=== PATIENT | female | born 1940 | race African-American/Black ===

== ENCOUNTER 2016-06-04 17:38 | Inpatient (IN) | payer MEDICARE, BC ==
[~2016-06-04] VITALS: Ht 157.5 cm; Wt 70.8 kg
[2016-06-04 17:00] VITALS: BP 120/80
[2016-06-04] MEDS ORDERED: IPRATROPIUM/ALBUTEROL 0.5-3(2.5)MG/3ML NEB HHN PRN (18:45)
[2016-06-04] MEDS ORDERED: TRAMADOL 50MG TABLET PO PRN (18:45)
[2016-06-04] MEDS ORDERED: MORPHINE SULFATE 2 MG/ML CPJ (NOT FOR IM USE) IV PRN (18:45)
[2016-06-04] MEDS ORDERED: DIATR MEGLU/DIATRIZOATE SOLN 30ML PO SCH (19:00)
[2016-06-04 19:49] LABS: CHLORIDE 105 mEq/L (98-107); INDEX HEMOLYSI 1 (1-3); INDEX ICTERIC 1 (1-4); INDEX LIPEMIC 1 (1-3)
[2016-06-04 19:52] LABS: INR 1.3
[2016-06-04 19:58] LABS: ALANINE AMINOTRANSFERASE 13 IU/L (13-61); ALBUMIN 2.5 g/dL (3.4-5.0); ANION GAP 18; CALCIUM 8.4 mg/dL (8.5-10.1); CARBON DIOXIDE 22 mEq/L (21-32); PHOSPHORUS 3.7 mg/dL (2.5-4.9); UREA NITROGEN BLOOD 7 mg/dL (7-21); eGFR > 60 mL/min (>60)
[2016-06-04 19:59] LABS: HEMATOCRIT. 33.2 % (36.0-48.0); HEMOGLOBIN. 10.7 g/dL (12.0-16.0); MEAN CORPUSCULAR HEMOGLOBIN 28.4 pg (28.0-32.0); MEAN CORPUSCULAR HGB CONC 32.3 g/dL (31.0-37.0); MEAN CORPUSCULAR VOLUME 88.1 fL (81.0-99.0); MEAN PLATELET VOLUME 7.9 fl (7.4-10.4); PLATELET 234 x1000/uL (130-400); RED BLOOD CELL COUNT 3.77 mill/uL (4.2-5.4); RED CELL DISTRIBUTION WIDTH 16.2 % (11.6-14.6); WHITE BLOOD COUNT 13.1 x1000/uL (4.5-11.0)
[2016-06-04 20:00] VITALS: BP 125/70
[2016-06-04 20:13] LABS: DIFFERENTIAL COMMENT 1
[2016-06-04 20:27] LABS: PLATELET ESTIMATE NORMAL
[2016-06-04 20:28] LABS: ANISOCYTOSIS 2+; HYPOCHROMASIA 1+
[2016-06-05] VITALS: BP 118/71
[2016-06-05] MEDS: ACETAMINOPHEN 325MG TABLET PO PRN ×2 (02:45→09:41)
[2016-06-05 04:00] VITALS: BP 118/72
[2016-06-05 08:00] VITALS: BP 109/70
[2016-06-05] MEDS: ENOXAPARIN 40MG/0.4ML SYR SUBCUT SCH (09:00)
[2016-06-05] MEDS ORDERED: IOHEXOL-300 100 ML BOTTLE ONE (11:50)
[2016-06-05] MEDS ORDERED: SODIUM CHLORIDE 0.9% 10ML VIAL ONE (11:50)
[2016-06-05 12:00] VITALS: BP 111/78
[2016-06-05] MEDS ORDERED: GUAIFENESIN/CODEINE 100-10MG/5ML UDC PO PRN (12:00)
[2016-06-05 12:57] LABS: HEMATOCRIT. 35.5 % (36.0-48.0); HEMOGLOBIN. 11.5 g/dL (12.0-16.0); MEAN CORPUSCULAR HEMOGLOBIN 28.6 pg (28.0-32.0); MEAN CORPUSCULAR HGB CONC 32.4 g/dL (31.0-37.0); MEAN CORPUSCULAR VOLUME 88.2 fL (81.0-99.0); MEAN PLATELET VOLUME 7.8 fl (7.4-10.4); PLATELET 252 x1000/uL (130-400); RED BLOOD CELL COUNT 4.03 mill/uL (4.2-5.4); RED CELL DISTRIBUTION WIDTH 16.5 % (11.6-14.6); WHITE BLOOD COUNT 14.4 x1000/uL (4.5-11.0)
[2016-06-05 13:01] LABS: DIFFERENTIAL COMMENT 1
[2016-06-05 13:09] LABS: ANION GAP 16; CALCIUM 8.8 mg/dL (8.5-10.1); CARBON DIOXIDE 21 mEq/L (21-32); CHLORIDE 104 mEq/L (98-107); INDEX HEMOLYSI 1 (1-3); INDEX ICTERIC 1 (1-4); INDEX LIPEMIC 1 (1-3); UREA NITROGEN BLOOD 7 mg/dL (7-21); eGFR > 60 mL/min (>60)
[2016-06-05 14:05] LABS: NUCLEATED RED BLOOD CELLS 1 /100 WBC
[2016-06-05 14:06] LABS: PLATELET ESTIMATE NORMAL
[2016-06-05 14:07] LABS: ANISOCYTOSIS 1+; GIANT PLATELETS 1+
[2016-06-05] MEDS: BENZONATATE 200MG CAPSULE PO SCH ×2 (14:32→22:29)
[2016-06-05] MEDS ORDERED: REGADENOSON 0.4 MG/5 ML IV SCH (15:30)
[2016-06-05 16:00] VITALS: BP 113/65
[2016-06-05] MEDS: IPRATROPIUM/ALBUTEROL 0.5-3(2.5)MG/3ML NEB HHN SCH ×3 (16:00→23:50)
[2016-06-05] MEDS ORDERED: MAGNESIUM CITRATE 300ML SOLUTION PO NR (17:30)
[2016-06-05] MEDS ORDERED: NEOMYCIN 500MG TABLET PO NR ×3 (18:00→22:00)
[2016-06-05] MEDS ORDERED: ERYTHROMYCIN 250MG TABLET PO NR ×3 (18:00→22:00)
[2016-06-05 20:00] VITALS: BP 109/71
[2016-06-05] MEDS: ONDANSETRON HCL 4MG/2ML VIAL IV PRN (20:36)
[2016-06-06] VITALS (20 sets, daily range): BP systolic 94–130; BP diastolic 54–82
[2016-06-06 01:38] LABS: CLARITY URINE CLOUDY (CLEAR); COLOR URINE DARK YELLOW (YELLOW); GLUCOSE URINE NEGATIVE (NEGATIVE); KETONES URINE TRACE (NEGATIVE); LEUKOCYTE ESTERASE URINE 1+ (NEGATIVE); NITRITE URINE NEGATIVE (NEGATIVE); OCCULT BLOOD URINE 1+ (NEGATIVE); PH URINE 6.5 (4.5-8.0); PROTEIN URINE 1+ (NEGATIVE); SPECIFIC GRAVITY URINE 1.044 (1.005-1.030)
[2016-06-06 03:17] LABS: AMORPHOUS SEDIMENT URINE 1+ /lpf; BACTERIA URINE 4+; SQUAMOUS EPITHELIAL CELL URINE FEW /lpf (RARE/1+)
[2016-06-06] MEDS: IPRATROPIUM/ALBUTEROL 0.5-3(2.5)MG/3ML NEB HHN SCH ×5 (04:12→20:07)
[2016-06-06] MEDS: BENZONATATE 200MG CAPSULE PO SCH ×3 (05:44→21:39)
[2016-06-06] MEDS: ONDANSETRON HCL 4MG/2ML VIAL IV PRN (08:03)
[2016-06-06] MEDS: ENOXAPARIN 40MG/0.4ML SYR SUBCUT SCH (08:06)
[2016-06-06] MEDS ORDERED: REGADENOSON 0.4 MG/5 ML IV ONE (09:34)
[2016-06-06] MEDS ORDERED: PROPOFOL 200MG/20ML VIAL IV ONE (10:21)
[2016-06-06] MEDS ORDERED: MIDAZOLAM HCL 2 MG/2 ML VIAL ONE (10:21)
[2016-06-06] MEDS ORDERED: LIDOCAINE HCL 1% 20ML VIAL (Pyxis) INJ ONE (10:21)
[2016-06-06] MEDS ORDERED: FENTANYL CITRATE/PF 50MCG/ML 2ML VIAL ONE (10:22)
[2016-06-06] MEDS ORDERED: BUPIVACAINE HCL 0.5% (5MG/ML) 50ML ONE (11:16)
[2016-06-06] MEDS ORDERED: SKIN ADHESIVE 0.7 GM EA TOP ONE (11:16)
[2016-06-06] MEDS ORDERED: ALBUTEROL 90MCG/PUFF 17GM INHALER INH ONE (11:20)
[2016-06-06] MEDS ORDERED: LEVOFLOXACIN 500MG PREMIX 100 ML IV ONE (11:25)
[2016-06-06] MEDS ORDERED: METRONIDAZOLE 500 MG PREMIX 100 ML IV ONE (11:26)
[2016-06-06] MEDS ORDERED: BUPIVACAINE HCL 0.5% 290 ML in ON-Q PM015 DRUG DELIV DEVICE 1 EA IR SCH (12:00)
[2016-06-06] MEDS ORDERED: ONDANSETRON HCL 4MG/2ML VIAL IV PRN ×2 (12:15→13:00)
[2016-06-06] MEDS ORDERED: HYDROMORPHONE HCL/PF 2MG/ML CPJ IV PRN (12:15)
[2016-06-06] MEDS ORDERED: GLYCOPYRROLATE 0.2 MG/ML 2ML VIAL ONE (12:33)
[2016-06-06] MEDS ORDERED: NEOSTIGMINE METHYLSULFATE 1MG/ML 10 ML VIAL ONE (12:33)
[2016-06-06] MEDS ORDERED: ONDANSETRON HCL 4MG/2ML VIAL ONE (12:37)
[2016-06-06] MEDS ORDERED: BUPIVACAINE HCL 0.5% 290 ML in ON-Q PM015 DRUG DELIV DEVICE 1 EA IR NR (13:00)
[2016-06-06] MEDS ORDERED: ACETAMINOPHEN 650MG SUPP PR PRN (13:00)
[2016-06-06] MEDS ORDERED: ONDANSETRON INJ IV PRN (13:45)
[2016-06-06] MEDS ORDERED: HYDROMORPHONE PCA 10MG/50ML IV PRN (13:45)
[2016-06-06] MEDS ORDERED: DIPHENHYDRAMINE INJ IV PRN (13:45)
[2016-06-06] MEDS ORDERED: NALOXONE INJ IV PRN (13:45)
[2016-06-06] MEDS ORDERED: DEXT 5%/0.45% NACL KCL 20MEQ/L 1,000 ML IV SCH ×2 (14:00→23:04)
[2016-06-06] MEDS ORDERED: NOREPINEPHRINE BITARTRATE 1MG/ML 4ML IV ONE (14:54)
[2016-06-06 15:20] LABS: BG CARBOXYHEMOGLOBIN 0.1 % (0.5-1.5); BG DEOXYHEMOGLOBIN 1.2 % (0.0-5.0); BG FRACTION INSPIRED OXYGEN 40; BG HCO3 ACT 13.8 mmol/L (22.0-26.0); BG METHEMOGLOBIN 0.5 % (0.0-1.5); BG OXYGEN SATURATION 98.8 % (92.0-98.5); BG OXYHEMOGLOBIN 98.2 % (94.0-97.0); BG PCO2 31.5 mmHg (35.0-45.0); BG PH 7.261 (7.350-7.450); BG PO2 156.1 mmHg (75.0-100.0); BG SAMPLE SITE RIGHT BRACHIAL; BG TIDAL VOLUME(mL) 450 mL; BG TOTAL HEMOGLOBIN 12.2 g/dL (12.0-18.0); BG VENT MODE VENT - A/C; BG VENT RATE 14 set
[2016-06-06] MEDS: MORPHINE SULFATE 2 MG/ML CPJ (NOT FOR IM USE) IV PRN ×2 (17:48→22:43)
[2016-06-06] MEDS ORDERED: SODIUM BICARBONATE 8.4% 1 MEQ/ML 50ML SYR IV NR (19:45)
[2016-06-06] MEDS: MORPHINE SULFATE 4 MG/ML CPJ (NOT FOR IM USE) IV PRN (20:19)
[2016-06-06] MEDS: FAMOTIDINE 20MG/2ML VIAL IV SCH (21:18)
[2016-06-06 22:12] LABS: BG BASE EXCESS -6.2 mmol/L (-2.0-2.0); BG CARBOXYHEMOGLOBIN 0.3 % (0.5-1.5); BG DEOXYHEMOGLOBIN 1.9 % (0.0-5.0); BG FRACTION INSPIRED OXYGEN 30; BG HCO3 ACT 16.8 mmol/L (22.0-26.0); BG METHEMOGLOBIN 0.5 % (0.0-1.5); BG OXYGEN SATURATION 98.1 % (92.0-98.5); BG OXYHEMOGLOBIN 97.3 % (94.0-97.0); BG PH 7.427 (7.350-7.450); BG PO2 114.7 mmHg (75.0-100.0); BG SAMPLE SITE RIGHT BRACHIAL; BG TIDAL VOLUME(mL) 450 mL; BG TOTAL HEMOGLOBIN 11.4 g/dL (12.0-18.0); BG VENT MODE VENT - A/C; BG VENT RATE 12 set
[2016-06-06] MEDS ORDERED: METRONIDAZOLE 500 MG PREMIX 100 ML IV STA (23:00)
[2016-06-06] MEDS ORDERED: VANCOMYCIN 1 G PREMIX 200 ML IV SCH (23:00)
[2016-06-07] VITALS (47 sets, daily range): BP systolic 94–136; BP diastolic 53–103
[2016-06-07] MEDS ORDERED: VANCOMYCIN 1250MG in DEXTROSE 5% WATER 250ML IV NR ×2
[2016-06-07] MEDS: WATER IV SCH ×2 (00:09→13:56)
[2016-06-07] MEDS: DEXTROSE 5% IV SCH ×2 (00:09→13:56)
[2016-06-07] MEDS: SODIUM BICARBONATE IV SCH ×2 (00:09→13:56)
[2016-06-07] MEDS: POTASSIUM CHLORIDE IV SCH ×2 (00:09→13:56)
[2016-06-07] MEDS: IPRATROPIUM/ALBUTEROL 0.5-3(2.5)MG/3ML NEB HHN SCH ×6 (00:10→20:09)
[2016-06-07] MEDS: METRONIDAZOLE 500 MG PREMIX 100 ML IV SCH ×3 (02:41→17:16)
[2016-06-07] MEDS: MORPHINE SULFATE 4 MG/ML CPJ (NOT FOR IM USE) IV PRN ×4 (02:42→19:56)
[2016-06-07 05:20] LABS: HEMATOCRIT. 31.4 % (36.0-48.0); HEMOGLOBIN. 10.4 g/dL (12.0-16.0); MEAN CORPUSCULAR HEMOGLOBIN 28.6 pg (28.0-32.0); MEAN CORPUSCULAR VOLUME 86.6 fL (81.0-99.0); MEAN PLATELET VOLUME 8.1 fl (7.4-10.4); PLATELET 260 x1000/uL (130-400); RED BLOOD CELL COUNT 3.63 mill/uL (4.2-5.4); RED CELL DISTRIBUTION WIDTH 16.2 % (11.6-14.6); WHITE BLOOD COUNT 16.2 x1000/uL (4.5-11.0)
[2016-06-07] MEDS: BENZONATATE 200MG CAPSULE PO SCH ×3 (05:20→21:06)
[2016-06-07 05:25] LABS: DIFFERENTIAL COMMENT 1
[2016-06-07] MEDS ORDERED: LEVOFLOXACIN 500MG PREMIX 100 ML IV SCH (09:00)
[2016-06-07 09:07] LABS: PLATELET ESTIMATE NORMAL
[2016-06-07 11:53] LABS: BG BASE EXCESS -1.4 mmol/L (-2.0-2.0); BG CARBOXYHEMOGLOBIN 0.3 % (0.5-1.5); BG DEOXYHEMOGLOBIN 1.1 % (0.0-5.0); BG FRACTION INSPIRED OXYGEN 30; BG HCO3 ACT 18.3 mmol/L (22.0-26.0); BG METHEMOGLOBIN 0.3 % (0.0-1.5); BG OXYGEN SATURATION 98.9 % (92.0-98.5); BG OXYHEMOGLOBIN 98.3 % (94.0-97.0); BG PCO2 18.7 mmHg (35.0-45.0); BG PH 7.608 (7.350-7.450); BG PO2 145.1 mmHg (75.0-100.0); BG SAMPLE SITE RIGHT RADIAL; BG TIDAL VOLUME(mL) 450 mL; BG VENT MODE VENT - A/C; BG VENT RATE 12 set
[2016-06-07] MEDS ORDERED: SODIUM BICARBONATE 8.4% 1 MEQ/ML 50ML SYR IV NR (12:00)
[2016-06-07] MEDS: VANCOMYCIN 1 G PREMIX 200 ML IV SCH (18:10)
[2016-06-07] MEDS: FAMOTIDINE 20MG/2ML VIAL IV SCH (20:53)
[2016-06-08] VITALS (45 sets, daily range): BP systolic 93–150; BP diastolic 47–97
[2016-06-08] MEDS: IPRATROPIUM/ALBUTEROL 0.5-3(2.5)MG/3ML NEB HHN SCH ×6 (00:15→20:26)
[2016-06-08] MEDS: METRONIDAZOLE 500 MG PREMIX 100 ML IV SCH ×3 (01:39→17:06)
[2016-06-08] MEDS: POTASSIUM CHLORIDE IV SCH ×2 (03:54→18:39)
[2016-06-08] MEDS: WATER IV SCH ×2 (03:54→18:39)
[2016-06-08] MEDS: DEXTROSE 5% IV SCH ×2 (03:54→18:39)
[2016-06-08] MEDS: SODIUM BICARBONATE IV SCH ×2 (03:54→18:39)
[2016-06-08] MEDS: MORPHINE SULFATE 4 MG/ML CPJ (NOT FOR IM USE) IV PRN ×4 (03:55→21:32)
[2016-06-08 05:39] LABS: HEMATOCRIT. 32.8 % (36.0-48.0); HEMOGLOBIN. 10.9 g/dL (12.0-16.0); MEAN CORPUSCULAR HEMOGLOBIN 28.8 pg (28.0-32.0); MEAN CORPUSCULAR HGB CONC 33.2 g/dL (31.0-37.0); MEAN CORPUSCULAR VOLUME 86.8 fL (81.0-99.0); MEAN PLATELET VOLUME 8.3 fl (7.4-10.4); PLATELET 233 x1000/uL (130-400); RED BLOOD CELL COUNT 3.78 mill/uL (4.2-5.4); RED CELL DISTRIBUTION WIDTH 16.5 % (11.6-14.6); WHITE BLOOD COUNT 15.9 x1000/uL (4.5-11.0)
[2016-06-08 05:43] LABS: DIFFERENTIAL COMMENT 1
[2016-06-08] MEDS: BENZONATATE 200MG CAPSULE PO SCH ×4 (05:47→21:44)
[2016-06-08 07:01] LABS: BG BASE EXCESS 2.2 mmol/L (-2.0-2.0); BG CARBOXYHEMOGLOBIN 0.3 % (0.5-1.5); BG DEOXYHEMOGLOBIN 1.9 % (0.0-5.0); BG FRACTION INSPIRED OXYGEN 24; BG HCO3 ACT 23.1 mmol/L (22.0-26.0); BG METHEMOGLOBIN 0.9 % (0.0-1.5); BG OXYGEN SATURATION 98.1 % (92.0-98.5); BG OXYHEMOGLOBIN 96.9 % (94.0-97.0); BG PCO2 24.7 mmHg (35.0-45.0); BG PH 7.588 (7.350-7.450); BG PO2 109.6 mmHg (75.0-100.0); BG SAMPLE SITE RIGHT BRACHIAL; BG TIDAL VOLUME(mL) 450 mL; BG TOTAL HEMOGLOBIN 10.6 g/dL (12.0-18.0); BG VENT MODE VENT - A/C; BG VENT RATE 12 set
[2016-06-08 07:30] LABS: CHLORIDE 101 mEq/L (98-107); INDEX HEMOLYSI 1 (1-3); INDEX ICTERIC 1 (1-4); INDEX LIPEMIC 1 (1-3)
[2016-06-08 07:39] LABS: ALANINE AMINOTRANSFERASE 15 IU/L (13-61); ALBUMIN 1.8 g/dL (3.4-5.0); ANION GAP 18; BILIRUBIN DIRECT 0.1 mg/dL (0.0-0.2); CALCIUM 7.7 mg/dL (8.5-10.1); CARBON DIOXIDE 20 mEq/L (21-32); UREA NITROGEN BLOOD 9 mg/dL (7-21); eGFR > 60 mL/min (>60)
[2016-06-08 09:07] LABS: PLATELET ESTIMATE NORMAL
[2016-06-08 09:08] LABS: ANISOCYTOSIS 1+; GIANT PLATELETS FEW
[2016-06-08 10:43] LABS: MAGNESIUM 2.5 mg/dL (1.8-2.4); PHOSPHORUS 1.7 mg/dL (2.5-4.9)
[2016-06-08] MEDS ORDERED: POTASSIUM CHLORIDE INJ 40 MEQ in DEXT 5% WATER 250 ML IV NR (11:30)
[2016-06-08] MEDS: VANCOMYCIN 1 G PREMIX 200 ML IV SCH (11:47)
[2016-06-08] MEDS: MORPHINE SULFATE 2 MG/ML CPJ (NOT FOR IM USE) IV PRN (11:47)
[2016-06-08 12:15] LABS: HEPATITIS B SURFACE ANTIGEN NEGATIVE
[2016-06-08 12:39] LABS: HEPATITIS C VIR.AB 0.13 INDEXVAL (0.00-0.80)
[2016-06-08 12:40] LABS: HEPATITIS B CORE AB IGM NEGATIVE
[2016-06-08 12:41] LABS: HEPATITIS A AB IGM NEGATIVE (NEGATIVE)
[2016-06-08] MEDS ORDERED: POTASSIUM PHOS,M-BASIC-D-BASIC 20 MMOL in DEXT 5% WATER 243.3333 ML IV NR (13:00)
[2016-06-08] MEDS: FAMOTIDINE 20MG/2ML VIAL IV SCH (21:31)
[2016-06-09] VITALS (42 sets, daily range): BP systolic 84–164; BP diastolic 50–112
[2016-06-09] MEDS: IPRATROPIUM/ALBUTEROL 0.5-3(2.5)MG/3ML NEB HHN SCH ×6 (00:23→20:15)
[2016-06-09] MEDS: MORPHINE SULFATE 4 MG/ML CPJ (NOT FOR IM USE) IV PRN ×2 (00:57→04:51)
[2016-06-09] MEDS: METRONIDAZOLE 500 MG PREMIX 100 ML IV SCH ×2 (01:22→09:17)
[2016-06-09 05:12] LABS: HEMATOCRIT. 28.9 % (36.0-48.0); HEMOGLOBIN. 9.5 g/dL (12.0-16.0); MEAN CORPUSCULAR HEMOGLOBIN 28.5 pg (28.0-32.0); MEAN CORPUSCULAR VOLUME 86.5 fL (81.0-99.0); PLATELET 205 x1000/uL (130-400); RED BLOOD CELL COUNT 3.34 mill/uL (4.2-5.4); RED CELL DISTRIBUTION WIDTH 16.7 % (11.6-14.6); WHITE BLOOD COUNT 15.8 x1000/uL (4.5-11.0)
[2016-06-09 05:15] LABS: DIFFERENTIAL COMMENT 1
[2016-06-09] MEDS: VANCOMYCIN 1 G PREMIX 200 ML IV SCH (05:41)
[2016-06-09] MEDS: BENZONATATE 200MG CAPSULE PO SCH ×3 (05:41→21:40)
[2016-06-09 06:26] LABS: ANION GAP 17; CARBON DIOXIDE 26 mEq/L (21-32); CHLORIDE 99 mEq/L (98-107); GAMMA GLUTAMYL TRANSPEPTIDASE 33 IU/L (7-32); INDEX HEMOLYSI 1 (1-3); INDEX ICTERIC 1 (1-4); INDEX LIPEMIC 1 (1-3); MAGNESIUM 2.3 mg/dL (1.8-2.4); UREA NITROGEN BLOOD 8 mg/dL (7-21); VANCOMYCIN TROUGH 3.7 ug/mL (5.0-10.0); eGFR > 60 mL/min (>60)
[2016-06-09 06:27] LABS: PHOSPHORUS 2.6 mg/dL (2.5-4.9)
[2016-06-09 07:10] LABS: BG BASE EXCESS 1.8 mmol/L (-2.0-2.0); BG CARBOXYHEMOGLOBIN 0.3 % (0.5-1.5); BG DEOXYHEMOGLOBIN 3.3 % (0.0-5.0); BG FRACTION INSPIRED OXYGEN 24; BG HCO3 ACT 24.9 mmol/L (22.0-26.0); BG METHEMOGLOBIN 0.4 % (0.0-1.5); BG OXYGEN SATURATION 96.7 % (92.0-98.5); BG PCO2 33.8 mmHg (35.0-45.0); BG PH 7.486 (7.350-7.450); BG PO2 86.5 mmHg (75.0-100.0); BG SAMPLE SITE RIGHT BRACHIAL; BG TIDAL VOLUME(mL) 450 mL; BG TOTAL HEMOGLOBIN 10.8 g/dL (12.0-18.0); BG VENT MODE VENT - A/C; BG VENT RATE 12 set
[2016-06-09] MEDS: POTASSIUM CHLORIDE IV SCH (07:34)
[2016-06-09] MEDS: SODIUM BICARBONATE IV SCH (07:34)
[2016-06-09] MEDS: WATER IV SCH (07:34)
[2016-06-09] MEDS: DEXTROSE 5% IV SCH (07:34)
[2016-06-09 08:31] LABS: ANISOCYTOSIS 1+
[2016-06-09 08:33] LABS: PLATELET ESTIMATE NORMAL
[2016-06-09] MEDS ORDERED: FUROSEMIDE 40MG/4ML VIAL IVP NR (08:41)
[2016-06-09] MEDS: METHYLPREDNISOLONE SOD SUCC 40 MG/ML VIAL IV SCH ×2 (08:54→18:25)
[2016-06-09] MEDS: MORPHINE SULFATE 2 MG/ML CPJ (NOT FOR IM USE) IV PRN (11:21)
[2016-06-09 13:48] LABS: BG BASE EXCESS 2.8 mmol/L (-2.0-2.0); BG CARBOXYHEMOGLOBIN 0.3 % (0.5-1.5); BG DEOXYHEMOGLOBIN 1.8 % (0.0-5.0); BG FRACTION INSPIRED OXYGEN 30; BG HCO3 ACT 26.1 mmol/L (22.0-26.0); BG METHEMOGLOBIN 0.4 % (0.0-1.5); BG OXYGEN SATURATION 98.2 % (92.0-98.5); BG OXYHEMOGLOBIN 97.5 % (94.0-97.0); BG PCO2 35.5 mmHg (35.0-45.0); BG PH 7.484 (7.350-7.450); BG PO2 113.8 mmHg (75.0-100.0); BG PRESSURE SUPPORT 10; BG SAMPLE SITE RIGHT BRACHIAL; BG TIDAL VOLUME(mL) 450 mL; BG TOTAL HEMOGLOBIN 11.7 g/dL (12.0-18.0); BG VENT MODE VENT - SIMV; BG VENT RATE 8 set
[2016-06-09] MEDS: DEXT 5%/0.45% NACL KCL 20MEQ/L 1,000 ML IV SCH (14:06)
[2016-06-09 17:08] LABS: MAGNESIUM 2.2 mg/dL (1.8-2.4); PHOSPHORUS 3.9 mg/dL (2.5-4.9)
[2016-06-09] MEDS ORDERED: IPRATROPIUM/ALBUTEROL 0.5-3(2.5)MG/3ML NEB HHN PRN (17:15)
[2016-06-09] MEDS: LEVOFLOXACIN 500MG PREMIX 100 ML IV SCH (19:42)
[2016-06-09] MEDS: FAMOTIDINE 20MG/2ML VIAL IV SCH (20:47)
[2016-06-09 22:43] LABS: CLARITY URINE CLEAR (CLEAR); COLOR URINE YELLOW (YELLOW); GLUCOSE URINE NEGATIVE (NEGATIVE); KETONES URINE NEGATIVE (NEGATIVE); LEUKOCYTE ESTERASE URINE NEGATIVE (NEGATIVE); NITRITE URINE NEGATIVE (NEGATIVE); OCCULT BLOOD URINE NEGATIVE (NEGATIVE); PH URINE 6.5 (4.5-8.0); PROTEIN URINE NEGATIVE (NEGATIVE); SPECIFIC GRAVITY URINE 1.009 (1.005-1.030); UROBILINOGEN URINE 0.2 E.U./dL (0.2-1.0)
[2016-06-10] VITALS (36 sets, daily range): BP systolic 96–143; BP diastolic 28–97
[2016-06-10] MEDS: IPRATROPIUM/ALBUTEROL 0.5-3(2.5)MG/3ML NEB HHN SCH ×6 (00:13→20:24)
[2016-06-10] MEDS: METHYLPREDNISOLONE SOD SUCC 40 MG/ML VIAL IV SCH ×3 (00:40→17:34)
[2016-06-10] MEDS: MORPHINE SULFATE 2 MG/ML CPJ (NOT FOR IM USE) IV PRN (00:41)
[2016-06-10 05:33] LABS: HEMATOCRIT. 32.3 % (36.0-48.0); HEMOGLOBIN. 10.6 g/dL (12.0-16.0); MEAN CORPUSCULAR HEMOGLOBIN 28.3 pg (28.0-32.0); MEAN CORPUSCULAR HGB CONC 32.8 g/dL (31.0-37.0); MEAN CORPUSCULAR VOLUME 86.4 fL (81.0-99.0); MEAN PLATELET VOLUME 8.3 fl (7.4-10.4); PLATELET 247 x1000/uL (130-400); RED BLOOD CELL COUNT 3.74 mill/uL (4.2-5.4); RED CELL DISTRIBUTION WIDTH 16.4 % (11.6-14.6); WHITE BLOOD COUNT 18.6 x1000/uL (4.5-11.0)
[2016-06-10] MEDS: BENZONATATE 200MG CAPSULE PO SCH ×3 (05:33→22:12)
[2016-06-10 05:35] LABS: DIFFERENTIAL COMMENT 1
[2016-06-10 06:03] LABS: ANION GAP 17; CALCIUM 8.2 mg/dL (8.5-10.1); CARBON DIOXIDE 27 mEq/L (21-32); CHLORIDE 97 mEq/L (98-107); INDEX HEMOLYSI 1 (1-3); INDEX ICTERIC 1 (1-4); INDEX LIPEMIC 1 (1-3); MAGNESIUM 2.4 mg/dL (1.8-2.4); PHOSPHORUS 3.5 mg/dL (2.5-4.9); UREA NITROGEN BLOOD 15 mg/dL (7-21); eGFR > 60 mL/min (>60)
[2016-06-10] MEDS: DEXT 5%/0.45% NACL KCL 20MEQ/L 1,000 ML IV SCH (06:44)
[2016-06-10] MEDS: MORPHINE SULFATE 4 MG/ML CPJ (NOT FOR IM USE) IV PRN ×2 (08:14→14:31)
[2016-06-10 08:27] LABS: PLATELET ESTIMATE NORMAL
[2016-06-10] MEDS: LEVOFLOXACIN 500MG PREMIX 100 ML IV SCH (11:03)
[2016-06-10] MEDS: FAMOTIDINE 20MG/2ML VIAL IV SCH (20:17)
[2016-06-11] VITALS (21 sets, daily range): BP systolic 59–151; BP diastolic 28–88
[2016-06-11] MEDS: METHYLPREDNISOLONE SOD SUCC 40 MG/ML VIAL IV SCH ×3 (00:24→18:19)
[2016-06-11] MEDS: MORPHINE SULFATE 2 MG/ML CPJ (NOT FOR IM USE) IV PRN ×2 (02:16→10:41)
[2016-06-11] MEDS: DEXT 5%/0.45% NACL KCL 20MEQ/L 1,000 ML IV SCH ×2 (03:54→20:48)
[2016-06-11] MEDS: BENZONATATE 200MG CAPSULE PO SCH ×3 (05:06→21:03)
[2016-06-11] MEDS: IPRATROPIUM/ALBUTEROL 0.5-3(2.5)MG/3ML NEB HHN SCH ×5 (06:36→20:16)
[2016-06-11] MEDS: LEVOFLOXACIN 500MG PREMIX 100 ML IV SCH (10:40)
[2016-06-11] MEDS: ACETAMINOPHEN 325MG TABLET PO PRN (18:23)
[2016-06-11] MEDS: FAMOTIDINE 20MG/2ML VIAL IV SCH (20:33)
[2016-06-12] VITALS (12 sets, daily range): BP systolic 116–137; BP diastolic 78–92
[2016-06-12] MEDS: METHYLPREDNISOLONE SOD SUCC 40 MG/ML VIAL IV SCH ×2 (00:33→08:13)
[2016-06-12] MEDS: IPRATROPIUM/ALBUTEROL 0.5-3(2.5)MG/3ML NEB HHN SCH ×6 (00:33→21:00)
[2016-06-12] MEDS: ACETAMINOPHEN 325MG TABLET PO PRN ×2 (00:41→08:49)
[2016-06-12] MEDS: BENZONATATE 200MG CAPSULE PO SCH ×3 (05:33→21:13)
[2016-06-12] MEDS: LEVOFLOXACIN 500MG PREMIX 100 ML IV SCH (10:17)
[2016-06-12] MEDS: FAMOTIDINE 20MG/2ML VIAL IV SCH (21:13)
[2016-06-12] MEDS: DEXT 5%/0.45% NACL KCL 20MEQ/L 1,000 ML IV SCH (21:13)
[2016-06-13] VITALS (11 sets, daily range): BP systolic 96–120; BP diastolic 31–75
[2016-06-13] MEDS: IPRATROPIUM/ALBUTEROL 0.5-3(2.5)MG/3ML NEB HHN SCH ×5 (00:36→16:05)
[2016-06-13] MEDS: ACETAMINOPHEN 325MG TABLET PO PRN (03:32)
[2016-06-13] MEDS: BENZONATATE 200MG CAPSULE PO SCH ×2 (05:36→13:13)
[2016-06-13 06:58] LABS: HEMATOCRIT. 32.6 % (36.0-48.0); HEMOGLOBIN. 10.6 g/dL (12.0-16.0); MEAN CORPUSCULAR HEMOGLOBIN 27.9 pg (28.0-32.0); MEAN CORPUSCULAR HGB CONC 32.6 g/dL (31.0-37.0); MEAN CORPUSCULAR VOLUME 85.8 fL (81.0-99.0); MEAN PLATELET VOLUME 7.8 fl (7.4-10.4); PLATELET 93 x1000/uL (130-400); RED CELL DISTRIBUTION WIDTH 16.9 % (11.6-14.6); WHITE BLOOD COUNT 25.5 x1000/uL (4.5-11.0)
[2016-06-13 07:07] LABS: DIFFERENTIAL COMMENT 1
[2016-06-13 07:41] LABS: ANION GAP 18; CALCIUM 8.1 mg/dL (8.5-10.1); CARBON DIOXIDE 24 mEq/L (21-32); CHLORIDE 96 mEq/L (98-107); INDEX HEMOLYSI 1 (1-3); INDEX ICTERIC 1 (1-4); INDEX LIPEMIC 1 (1-3); MAGNESIUM 2.2 mg/dL (1.8-2.4); PHOSPHORUS 1.7 mg/dL (2.5-4.9); UREA NITROGEN BLOOD 24 mg/dL (7-21); eGFR > 60 mL/min (>60)
[2016-06-13 07:49] LABS: BG BASE EXCESS -0.9 mmol/L (-2.0-2.0); BG CARBOXYHEMOGLOBIN 0.5 % (0.5-1.5); BG DEOXYHEMOGLOBIN 7.4 % (0.0-5.0); BG FRACTION INSPIRED OXYGEN 21; BG HCO3 ACT 21.8 mmol/L (22.0-26.0); BG METHEMOGLOBIN 0.1 % (0.0-1.5); BG OXYGEN SATURATION 92.6 % (92.0-98.5); BG PO2 62.2 mmHg (75.0-100.0); BG SAMPLE SITE LEFT BRACHIAL; BG TOTAL HEMOGLOBIN 11.4 g/dL (12.0-18.0); BG VENT MODE ROOM AIR
[2016-06-13] MEDS: LEVOFLOXACIN 500MG PREMIX 100 ML IV SCH (10:13)
[2016-06-13] MEDS ORDERED: POTASSIUM-SODIUM PHOSPHATE POWDER PACKET PO SCH (14:00)
[2016-06-13 15:51] LABS: NUCLEATED RED BLOOD CELLS 2 /100 WBC
[2016-06-13 15:52] LABS: PLATELET ESTIMATE DECREASED
[2016-06-15] MEDS ORDERED: POTASSIUM-SODIUM PHOSPHATE POWDER PACKET PO SCH (09:00)
== END 2016-06-13 17:00 | disposition short-term general hospital (02) | DRG 329 ==
LOC: 6EST 17:38 → CVICU 06-06 15:51 → 5EST 06-10 22:48
PROVIDERS: ADMIT Internal Medicine; ATTEND Internal Medicine
PROC: 5A1945Z Respiratory Ventilation, 24-96 Consecutive Hours (ICD-10-PCS; 2016-06-06)
PROC: 0BH17EZ Insertion of Endotracheal Airway into Trachea, Via Natural or Artificial Opening (ICD-10-PCS; 2016-06-06)
PROC: 0DTF0ZZ Resection of Right Large Intestine, Open Approach (ICD-10-PCS; principal; 2016-06-06 10:30)
DX: C18.2 Malignant neoplasm of ascending colon (principal); J95.821 Acute postprocedural respiratory failure; E46 Unspecified protein-calorie malnutrition; N39.0 Urinary tract infection, site not specified; D50.0 Iron deficiency anemia secondary to blood loss (chronic); D69.6 Thrombocytopenia, unspecified; E83.39 Other disorders of phosphorus metabolism; E87.6 Hypokalemia; H54.0 Blindness, both eyes; I10 Essential (primary) hypertension; J44.9 Chronic obstructive pulmonary disease, unspecified; J84.112 Idiopathic pulmonary fibrosis; R26.9 Unspecified abnormalities of gait and mobility; E66.9 Obesity, unspecified; K29.60 Other gastritis without bleeding; K59.00 Constipation, unspecified; L23.9 Allergic contact dermatitis, unspecified cause; M19.90 Unspecified osteoarthritis, unspecified site; M48.00 Spinal stenosis, site unspecified; M51.26 Other intervertebral disc displacement, lumbar region; Z85.038 Personal history of other malignant neoplasm of large intestine; Z85.72 Personal history of non-Hodgkin lymphomas; Z92.21 Personal history of antineoplastic chemotherapy; Z92.3 Personal history of irradiation; Z68.21 Body mass index [BMI] 21.0-21.9, adult; Z87.891 Personal history of nicotine dependence; Z88.6 Allergy status to analgesic agent; Z88.0 Allergy status to penicillin; Z88.8 Allergy status to other drugs, medicaments and biological substances; Z79.2 Long term (current) use of antibiotics; Z79.899 Other long term (current) drug therapy
CPT/HCPCS: 36415; 36600; 71010; 71020; 71270; 74178; 78452; 80048; 80053; 80076; 80202; 81001; 81003; 82375; 82378; 82805; 82962; 82977; 83735; 84100; 84132; 85025; 85610; 85730; 86705; 86709; 86803; 86850; 86900; 87070; 87086; 87340; 88108; 88305; 88309; 88331; 93005; 93017; 93306; 93970; 94003; 94640; 94664; 97110; 97116; 97163; 97167; 97530; A4216; A6261; A9500; J1170; J1940; J1956; J2250; J2270; J2405; J2704; J2710; J2785; J2920; J3010; J3370; J3480; J3490; J7042; J7050; J7060; J7070; J7620; Q9963; Q9967; A4315

== ENCOUNTER 2016-06-13 16:50 | Inpatient (IN) | payer MEDICARE, BC ==
[~2016-06-13] VITALS: Ht 157.5 cm; Wt 54.0 kg
[2016-06-13] MEDS ORDERED: IPRATROPIUM/ALBUTEROL 0.5-3(2.5)MG/3ML NEB HHN PRN (18:30)
[2016-06-13] MEDS ORDERED: GUAIFENESIN 200MG/10ML SUGAR FREE UDC PO PRN (18:30)
[2016-06-13] MEDS ORDERED: ACETAMINOPHEN 650MG SUPP PR PRN (18:30)
[2016-06-13] MEDS ORDERED: ONDANSETRON HCL 4MG/2ML VIAL IV PRN (18:30)
[2016-06-13] MEDS ORDERED: ACETAMINOPHEN 325MG TABLET PO PRN (18:30)
[2016-06-13 19:00] VITALS: BP 96/62
[2016-06-13] MEDS ORDERED: TRAMADOL 50MG TABLET PO PRN (19:15)
[2016-06-13] MEDS ORDERED: GUAIFENESIN/CODEINE 100-10MG/5ML UDC PO PRN (19:30)
[2016-06-13 19:45] VITALS: BP 96/62
[2016-06-13] MEDS ORDERED: IPRATROPIUM/ALBUTEROL 0.5-3(2.5)MG/3ML NEB HHN SCH (20:00)
[2016-06-13] MEDS ORDERED: DEXT 5%/0.45% NACL KCL 20MEQ/L 1,000 ML IV SCH (21:00)
[2016-06-13] MEDS ORDERED: BENZONATATE 200MG CAPSULE PO SCH (22:00)
[2016-06-13 22:35] VITALS: BP 105/73
[2016-06-13 23:50] VITALS: BP 105/70
[2016-06-14] VITALS: BP 105/70
[2016-06-14] MEDS ORDERED: ENOXAPARIN 40MG/0.4ML SYR SUBCUT SCH (09:00)
[2016-06-14] MEDS ORDERED: FAMOTIDINE 20MG/2ML VIAL IV SCH (09:00)
[2016-06-14] MEDS ORDERED: LEVOFLOXACIN 500MG PREMIX 100 ML IV SCH ×2 (11:00)
== END 2016-06-14 00:48 | disposition short-term general hospital (02) | DRG 376 ==
PROVIDERS: ADMIT Physical Medicine & Rehabilitation Spinal Cord Injury Medicine; ATTEND Internal Medicine
DX: C18.9 Malignant neoplasm of colon, unspecified (principal); D72.829 Elevated white blood cell count, unspecified; Z90.49 Acquired absence of other specified parts of digestive tract
CPT/HCPCS: J1956; J7050; J7620